=== PATIENT | male | born 1950 | race Hispanic/Latino ===

== ENCOUNTER 2024-11-07 14:32 | Inpatient (IN) | payer MEDICARE ==
[~2024-11-07] VITALS: Ht 167.6 cm; Wt 135.5 kg
[2024-11-07 15:10] LABS: BASOPHILS # (AUTO) 0.09 K/uL (0.00-0.20); BASOPHILS % (AUTO) 1.3 % (0.0-5.0); EOSINOPHILS # (AUTO) 0.47 K/uL (0.00-0.70); EOSINOPHILS % (AUTO) 6.6 % (0.0-8.0); HEMATOCRIT 35.7 % (42-54); IMMATURE GRANULOCYTE ABSOLUTE 0.01 K/uL (0-1); LYMPHOCYTES # (AUTO) 1.6 K/uL (1.0-4.8); LYMPHOCYTES % (AUTO) 22.9 % (21.0-51.0); MEAN CORPUSCULAR HEMOGLOBIN 31.8 pg (27.0-33.0); MEAN CORPUSCULAR HGB CONC 34.5 g/dL (32.0-36.0); MEAN CORPUSCULAR VOLUME 92.2 fL (79-99); MONOCYTES # (AUTO) 0.8 K/uL (0.1-1.0); MONOCYTES % (AUTO) 11.8 % (3.0-13.0); NEUTROPHILS # (AUTO) 4.1 K/uL (1.8-7.7); NEUTROPHILS % (AUTO) 57.3 % (40.0-77.0); PLATELET COUNT (AUTO) 131 K/uL (130-400); RED BLOOD CELL COUNT(AUTO) 3.87 MIL/uL (4.50-6.20); RED CELL DISTRIBUTION WIDTH 14.7 % (11.0-15.5); WHITE BLOOD COUNT (AUTO) 7.1 K/uL (4.8-10.8)
[2024-11-07 15:23] LABS: CREATININE 0.9 mg/dL (0.5-1.3); POTASSIUM 3.3 mmol/L (3.5-5.1)
[2024-11-07 15:26] LABS: SARS-CoV-2, RNA, NAAT NEGATIVE SARS CoV-2 (NEGATIVE)
[2024-11-07 15:34] LABS: INFLUENZA TYPE A Negative For Type A (NEGATIVE); INFLUENZA TYPE B Negative For Type B (NEGATIVE)
--- NOTE | 2024-11-07 15:34 | HMCIMG ---
CHEST 1VW REASON: Shortness of breath COMPARISON: None. FINDINGS: There is mild cardiomegaly. There is no pulmonary vascular congestion. There is elevation of the right hemidiaphragm. Mediastinum and bony thorax appear unremarkable. IMPRESSION: 1. Mild cardiomegaly. 2. No acute finding.
[2024-11-07 15:35] LABS: B-TYPE NATRIURETIC PEPTIDE 34 pg/mL (0-100)
[2024-11-07] MEDS ORDERED: FURO40TA5 PO (15:57)
[2024-11-07] MEDS ORDERED: MUPI15CR12 TP (15:57)
[2024-11-07] MEDS ORDERED: CLOP75TA32 PO (15:57)
[2024-11-07] MEDS ORDERED: ASPI-1443 PO (15:57)
[2024-11-07] MEDS ORDERED: LISI10TA24 PO (15:57)
[2024-11-07] MEDS ORDERED: AMLO-257 PO (15:57)
[2024-11-07] MEDS ORDERED: ATOR10 PO (15:57)
--- NOTE | 2024-11-07 16:03 | ERN ---
General Chief Complaint: Shortness of Breath Stated Complaint: SOB SENT BY PCP Time Seen by MD: 14:36 History of Present Illness Initial Comments 74 y/o male came in for shortness of breath without any chest pain. Home Meds Reported Medications Mupirocin Calcium (Mupirocin) 2 % Cream..g., 1 APPL TP TID for 10 Days, #30 GM 0 Refills 11/07/24 Lisinopril (Lisinopril) 10 Mg Tablet, 1 TAB PO DAILY for 30 Days, #30 TAB 0 Refills 11/07/24 Clopidogrel Bisulfate (Clopidogrel) 75 Mg Tablet, 1 TAB PO DAILY for 30 Days, #30 TAB 0 Refills 11/07/24 Atorvastatin Calcium (LIPITOR) 20 Mg Tab, 1 TAB PO HS for 30 Days, #30 TAB 0 Refills 11/07/24 Aspirin (Aspirin EC) 81 Mg Tablet.dr, 1 TAB PO DAILY for 30 Days, #30 TAB 0 Refills 11/07/24 Furosemide (Furosemide) 40 Mg Tablet, 1 TAB PO DAILY for 30 Days, #30 TAB 0 Refills 11/07/24 Amlodipine Besylate (Amlodipine Besylate) 5 Mg Tablet, 1 TAB PO DAILY for 30 Days, #30 TAB 0 Refills 11/07/24 Past Medical History Past Medical History: CHF, High Cholesterol, Hypertension Past Surgical History: None ROS Dictation Shortness of breath Physical Exam Physical Exam Dictation There are B/L crackles Results Laboratory and Microbiology Lab and Micro Result Laboratory Tests Test 11/07/24 14:56 11/07/24 15:00 Influenza Type A Antigen Negative For Type A Influenza Type B Antigen Negative For Type B SARS-CoV-2, RNA, NAAT NEGATIVE SARS CoV-2 White Blood Count 7.1 K/uL (4.8-10.8) Red Blood Count 3.87 MIL/uL (4.50-6.20) L Hemoglobin 12.3 g/dL (14.0-18.0) L Hematocrit 35.7 % (42-54) L Mean Corpuscular Volume 92.2 fL (79-99) Mean Corpuscular Hemoglobin 31.8 pg (27.0-33.0) Mean Corpuscular Hemoglobin Concent 34.5 g/dL (32.0-36.0) Red Cell Distribution Width 14.7 % (11.0-15.5) Platelet Count 131 K/uL (130-400) Mean Platelet Volume 9.5 fL (7.5-10.5) Immature Granulocyte % (Auto) 0.1 % (0-1) Neutrophils (%) (Auto) 57.3 % (40.0-77.0) Lymphocytes (%) (Auto) 22.9 % (21.0-51.0) Monocytes (%) (Auto) 11.8 % (3.0-13.0) Eosinophils (%) (Auto) 6.6 % (0.0-8.0) Basophils (%) (Auto) 1.3 % (0.0-5.0) Neutrophils # (Auto) 4.1 K/uL (1.8-7.7) Lymphocytes # (Auto) 1.6 K/uL (1.0-4.8) Monocytes # (Auto) 0.8 K/uL (0.1-1.0) Eosinophils # (Auto) 0.47 K/uL (0.00-0.70) Basophils # (Auto) 0.09 K/uL (0.00-0.20) Absolute Immature Granulocyte (auto 0.01 K/uL (0-1) Nucleated Red Blood Cells 0.0 % (0.0-0.19) Sodium Level 140 mmol/L (136-145) Potassium Level 3.3 mmol/L (3.5-5.1) L Chloride Level 106 mmol/L (101-111) Carbon Dioxide Level 27 mmol/L (21-32) Blood Urea Nitrogen 12 mg/dL (7-18) Creatinine 0.9 mg/dL (0.5-1.3) Glomerular Filtration Rate Calc 91 mL/min (>90) Random Glucose 105 mg/dL (70-105) Lactic Acid Level 1.9 mmol/L (0.8-2.5) Total Calcium 8.5 mg/dL (8.5-10.1) Troponin I High Sensitivity 10 ng/L (4-75) B-Type Natriuretic Peptide 34 pg/mL (0-100) MDM Pt admitted to hospitalist for further management ED Course Orders Procedure Category Date Status Time 12 Lead Ekg Tracing- EKG 11/07/24 Logged Technical 14:36 Cbc With Differential LAB 11/07/24 Complete 14:36 Basic Metabolic Panel LAB 11/07/24 Complete 14:36 Covid Rna Naat LAB 11/07/24 Complete 14:36 B-Type Natriuretic LAB 11/07/24 Complete Peptide 14:36 Influenza Type A & B, LAB 11/07/24 Complete Rapid 14:36 Lactic Acid LAB 11/07/24 Complete 14:36 Procalcitonin LAB 11/07/24 In Process 14:36 Pt And Ptt LAB 11/07/24 In Process 14:36 Troponin I High LAB 11/07/24 Complete Sensitivity 14:36 Chest 1vw RAD 11/07/24 Resulted 14:36 Furosemide 40mg Vial PHA 11/07/24 Transmitted (Lasix 40mg Vial) 16:00 Vital Signs Date Time Temp Pulse Resp B/P (MAP) Pulse Ox O2 Delivery O2 Flow Rate FiO2 11/07/24 15:02 57 18 153/58 98 Room Air* 0 21 11/07/24 14:34 97.3 81 20 149/72 Room Air 0 DX & DISP Disposition: Inpatient Departure Impression: Primary Impression: CHF exacerbation Condition: Stable XENIA WALDEN MD Nov 07, 2024 16:03
[2024-11-07 16:05] LABS: INR 1.29 (0.85-1.15); PROTHROMBIN TIME 14.1 SEC (9.6-11.6)
[2024-11-07 16:06] LABS: PARTIAL THROMBOPLASTIN TIME 33.3 SEC (26.3-35.5)
[2024-11-07] MEDS: furoSEMIDE 40MG VIAL IV ONE (16:11)
[2024-11-07] MEDS ORDERED: NITROGLYCERIN 0.4 MG SL TAB SL PRN (16:30)
[2024-11-07] MEDS ORDERED: acetaMINOPHEN 325 MG TAB PO PRN (16:30)
[2024-11-07] MEDS ORDERED: guaiFENesin-DM 200/20MG 10ML PO PRN (16:30)
[2024-11-07] MEDS ORDERED: DiphenhydrAMINE HCL 50 MG/ML VIAL IV PRN (16:30)
[2024-11-07] MEDS ORDERED: LACTULOSE 20 GM/30 ML UDCUP PO PRN (16:30)
[2024-11-07] MEDS ORDERED: ondanSETRON 4MG INJ IV PRN (16:30)
[2024-11-07] MEDS ORDERED: FAMOTIDINE 20MG VIAL IV PRN (16:30)
[2024-11-07] MEDS: furoSEMIDE 40MG VIAL IV SCH (16:30)
[2024-11-07] MEDS ORDERED: morPHINE 2 MG SYG IVP PRN (16:30)
[2024-11-07] MEDS ORDERED: ZOLPidem TARTrate 5 MG TAB PO PRN (16:30)
--- NOTE | 2024-11-07 16:36 | HP ---
LAY HISTORY AND PHYSICAL Date of Service: Nov 07, 2024 Time of Service: 16:36 HISTORY OF PRESENT ILLNESS: MR. Clifton, 74-year-old male with past history of blood pressure, came to the ED was referred by his PCP for shortness of breaths and sudden increase in his weight in 2 weeks of 30 lb probable fluid weight. Patient states he had COVID in August, after which his symptoms started of cough which was worsening and in September he started developing shortness of breath, worsening now he is in a state of gasping air and able to catch words properly. He says he sleeps with2 pillows, but has been the same way from before. Patient says he consulted Dr. Barroso on October 31 2024 and follows outpatient. On examination patient face looks puffy and lower extremities has chronic venous stasis dermatitis with edema, he says has been scratched in the garden on the right lower leg inform blisters which is not resolving. Ordered for a venous Doppler study. Chest x-ray shows cardiomegaly and pleural effusion. In the ED patient has been given furosemide 40 mg vial.Vitals temperature 97.3, pulse 57, RR 18 , blood pressure 153/58, pulse oxy 98 on room air. Labs WBC 7.1 HB 12.3, sodium 140, potassium 3.3, BUN 12 , creatinine 0.9, GFR 91. Troponin negative 10, BNP 34, we will repeat troponins and BNP. We will admit the patient to PCCU, with daily fluid restrictions of 1.5-2 L, daily weights, strict I&O. REVIEW OF SYSTEMS CONSTITUTIONAL: Shortness of breath, cough Denies fevers, chills, or night sweats. No unintentional weight loss reported. NEUROLOGICAL: Denies headache, amaurosis fugax, motor weakness, sensory deficit, vertigo/spinning sensation, gait abnormalities, or tremors. ENT: No hearing loss, otalgia, otorrhea, rhinitis, rhinorrhea, hoarseness, or sore throat. CARDIOVASCULAR: Denies any exertional angina, dyspnea on exertion, orthopnea, paroxysmal nocturnal dyspnea, palpitations, life-threatening arrhythmias, claudication. PULMONARY: Denies any shortness of breath, cough, phlegm/sputum, hemoptysis, pleuritic chest pain. SLEEP: Denies morning headaches, daytime somnolence or napping. Denies diff iculty falling asleep, staying asleep, waking from sleep. Denies knowledge of snoring. GASTROINTESTINAL: Denies any type of dysphagia to either liquids or solids. Denies nausea, vomiting, pyrosis, early satiety, abdominal pain, diarrhea, constipation, or changes in stool consistency or caliber. Denies coffee-ground emesis, hematemesis, hematochezia, or melanotic stools. GENITOURINARY: Denies frequency, urgency, nocturia, hematuria or incontinence (Storage/Irritative symptoms.) Low urinary stream, straining to void, urinary intermittency or hesitancy, splitting of the voiding stream, terminal dribbling. ENDOCRINOLOGIC: Denies polyuria, polydipsia, polyphagia or heat/cold in tolerances. HEMATOLOGIC: Denies thrombophilia/previous clots, or coagulopathy/bleeding disorders. ONCOLOGIC: Denies personal history of malignancy. DERMATOLOGIC: Chronic venous stasis dermatitis Denies rashes or pruritus. PSYCHIATRIC: Denies any suicidal or homicidal ideation. Denies hallucinations. PAST MEDICAL HISTORY: High Blood pressure PAST SURGICAL HISTORY: None PAST SOCIAL HISTORY: None FAMILY HISTORY: n/a Coded Allergies: No Known Drug Allergies (Unverified Allergy, Unknown, 11/07/24) PHYSICAL EXAM GENERAL APPEARANCE: edematous The patient is awake, alert, and oriented, in no acute cardiopulmonary distress. NEUROLOGICAL: Cranial nerves II-XII grossly intact. Motor is 5/5 in bilateral upper and lower extremities proximal to distal. No sensory deficits. HEENT: Face is symmetric. Pupils are equal and reactive. Extraocular movements are intact. NECK: Supple. No JVD. No thyromegaly. No submental, submandibular, pre- /postauricular, occipital or supraclavicular lymphadenopathy. CHEST: Normal chest expansion. No Telemetry. LUNGS: Decreased breath sounds Absence of any rales, rhonchi or any wheezing. CARDIOVASCULAR: Regular. S1 and S2 normal. No appreciable rubs, murmurs or gallops. ABDOMEN: Soft, nontender, and nondistended. There is no rebound, voluntary guarding, or rigidity. : Deferred. No [place]. EXTREMITIES: Chronic venous stasis dermatitis Non-edematous and not cyanotic. No clubbing. Good capillary refill. SKIN: No skin breakdown. Vital Sign (Last 24 Hours) 11/07/24 11/07/24 14:34 15:02 Temp 97.3 Pulse 57 Resp 18 B/P (MAP) 153/58 Pulse Ox 98 O2 Delivery Room Air* O2 Flow Rate 0 FiO2 21 LABS: Laboratory: Test 11/07/24 15:00 11/07/24 14:56 Range/Units White Blood Count 7.1 4.8-10.8 K/uL Red Blood Count 3.87 L 4.50-6.20 MIL/uL Hemoglobin 12.3 L 14.0-18.0 g/dL Hematocrit 35.7 L 42-54 % Mean Corpuscular Volume 92.2 79-99 fL Mean Corpuscular Hemoglobin 31.8 27.0-33.0 pg Mean Corpuscular Hemoglobin Concent 34.5 32.0-36.0 g/dL Red Cell Distribution Width 14.7 11.0-15.5 % Platelet Count 131 130-400 K/uL Mean Platelet Volume 9.5 7.5-10.5 fL Immature Granulocyte % (Auto) 0.1 0-1 % Neutrophils (%) (Auto) 57.3 40.0-77.0 % Lymphocytes (%) (Auto) 22.9 21.0-51.0 % Monocytes (%) (Auto) 11.8 3.0-13.0 % Eosinophils (%) (Auto) 6.6 0.0-8.0 % Basophils (%) (Auto) 1.3 0.0-5.0 % Neutrophils # (Auto) 4.1 1.8-7.7 K/uL Lymphocytes # (Auto) 1.6 1.0-4.8 K/uL Monocytes # (Auto) 0.8 0.1-1.0 K/uL Eosinophils # (Auto) 0.47 0.00-0.70 K/uL Basophils # (Auto) 0.09 0.00-0.20 K/uL Absolute Immature Granulocyte (auto 0.01 0-1 K/uL Nucleated Red Blood Cells 0.0 0.0-0.19 % Prothrombin Time 14.1 H 9.6-11.6 SEC Prothromb Time International Ratio 1.29 H 0.85-1.15 Activated Partial Thromboplast Time 33.3 26.3-35.5 SEC Sodium Level 140 136-145 mmol/L Potassium Level 3.3 L 3.5-5.1 mmol/L Chloride Level 106 101-111 mmol/L Carbon Dioxide Level 27 21-32 mmol/L Blood Urea Nitrogen 12 7-18 mg/dL Creatinine 0.9 0.5-1.3 mg/dL Glomerular Filtration Rate Calc 91 >90 mL/min Random Glucose 105 70-105 mg/dL Lactic Acid Level 1.9 0.8-2.5 mmol/L Total Calcium 8.5 8.5-10.1 mg/dL Troponin I High Sensitivity 10 4-75 ng/L B-Type Natriuretic Peptide 34 0-100 pg/mL Procalcitonin 0.06 0.05-0.5 ng/mL Influenza Type A Antigen Negative For Type A NEGATIVE Influenza Type B Antigen Negative For Type B NEGATIVE SARS-CoV-2, RNA, NAAT NEGATIVE SARS CoV-2 NEGATIVE DIAGNOSTICS / RADIOLOGY: [ ] ASSESSMENT: fluid overload anasarca cirrhosis vs nephrotic syndrome vs Heart failure Shortness of breaths Edema Hypokalemia Pleural effusion on chest x-ray Cardiomegaly on chest x-ray Chronic venous stasis dermatitis bilateral History of high blood pressure PLAN: We will plan to admit the patient to PCCU Daily fluid restriction 1.5-2 L, daily weights, strict I&O We will start the patient on furosemide 40 mg b.i.d. IV Started On heart healthy diet Chest x-ray noted, echo noted pending on results Venous Doppler study noted pending on results, as the patient has chronic venous stasis dermatitis Cardiology consultation noted, waiting on their recommendations Reconciled home meds Added p.r.n. medications for nausea vomiting cough, hypokalemia, hypomagnesemia Started on DVT/GI prophylaxis Further orders to follow as per the recommendation and results ADVANCED CARE PLANNING 1. Which of the following were discussed? Hospice Care - Yes Therapeutic options - Yes Advance Directives - Yes- patient states he does not have any advance directives in place at this time, however his can make decisions for him if he becomes unable. Other discussions - patient wishes to remain a full code at this time 2. Discussed with who? Patient 3. Voluntary nature of this service was explained to the patient? Yes 4. Amount of time spent - __ 16 minutes 5. Reviewed by Physician? (if this service was performed by NPP) Yes This document was generated in part using voice recognition software, occasional wrong word or sound alike substitutions may have occurred due to the inherent limitations of voice recognition software. Read the chart carefully and recognize using context, where the substitutions have occurred. Although every effort was made to edit the content, job hand and typing errors may occur ATTESTATION BY PHYSICIAN I have seen and examined the patient. I reviewed the documentation, medical decision making, and treatment plan as noted by the mid-level provider above. I agree with the findings and plan of care. Marycarmen Rodrigues MD, AISHWARYA MD Nov 07, 2024 16:36
[2024-11-07] MEDS ORDERED: PoTASSium chloRIDE 20MEQ/100ML 100 ML IV PRN (17:00)
[2024-11-07] MEDS ORDERED: MAGNESIUM 2GM PREMIX 50ML 50 ML IV PRN (17:00)
[2024-11-07] MEDS: PoTASSium chl 10% ELIXIR 20MEQ 20 MEQ/15 ML UDCUP PO PRN (17:09)
[2024-11-07 17:20] VITALS: PULSE 82; RESP 20; O2SAT 99
--- NOTE | 2024-11-07 18:05 | HMCIMG ---
ULTRASOUND VENOUS DOPPLER, BILATERAL LOWER EXTREMITIES INDICATION: Bilateral lower extremity pain and swelling TECHNIQUE: Routine grayscale and color Doppler ultrasound of the bilateral lower extremity veins performed. COMPARISON: No priors. FINDINGS: The demonstrated veins of the bilateral lower extremity including the common femoral vein, femoral vein, and popliteal vein are associated with normal compressibility, augmentation, and flow. Normal respiratory variation was identified. No evidence for echogenic intraluminal thrombus formation. IMPRESSION: No sonographic evidence for deep venous thrombosis within the bilateral lower extremity veins.
[2024-11-07] MEDS ORDERED: IOHEXOL 350 MG/ML 100ML INFUS..BTL IV ONE (18:30)
--- NOTE | 2024-11-07 18:51 | HMCIMG ---
CT ANGIOGRAM OF THE CHEST WITHOUT AND WITH CONTRAST. CT RECONSTRUCTIONS INDICATION: Elevated d-dimer TECHNIQUE: Routine axial images using 3 mm slice thickness were acquired from the lung apices to the bases before and after the intravenous administration of 100 mL of Omnipaque 350 contrast material using the pulmonary embolism protocol. Maximum Intensity Projection imaging in the sagittal and coronal planes were also provided. CT was performed with one or more of the following dose reduction techniques: Automated exposure control, adjustment of the mA and/or kV according to patient size, or use of iterative reconstruction technique. COMPARISON: None FINDINGS: Examination is limited secondary to suboptimal contrast bolus timing. The contrast bolus is of fair-poor quality for diagnosis of pulmonary embolism. The heart size is within normal limits without pericardial effusion. The main pulmonary arteries and visible proximal segmental branches appear normal without intraluminal filling defects. Remainder of the pulmonary arterial system is not well-visualized. Pulmonary trunk is not enlarged. Mild calcific plaque is present along the aortic arch and thoracic aortic dillon without aneurysmal dilation or dissection. The visible portions of the trachea and airways are patent. Moderate right pleural effusion with subjacent passive atelectasis, but no evidence for pneumothorax, abnormal consolidation, cavitary lesion, pulmonary nodule, or mass. No axillary, hilar, or mediastinal lymphadenopathy detected. Several subcentimeter calcific gallstones. Liver is decreased in size and nodular in contour. Small amount of free fluid scattered throughout the upper abdomen. Spleen may be slightly enlarged. Visible osseous structures are intact. IMPRESSION: 1. Moderate right pleural effusion with subjacent passive atelectasis, but no evidence for pulmonary embolism within the limits of this exam. 2. Cirrhotic liver, mild splenic enlargement, and small-volume upper abdominal ascites. 3. Cholelithiasis.
[2024-11-07 19:03] VITALS: PULSE 82; RESP 20
[2024-11-07] MEDS: ALBUTEROL 0.083% 2.5 MG/3 ML INH IH SCH (19:03)
[2024-11-07 19:10] VITALS: PULSE 86; RESP 20; O2SAT 98
[2024-11-07] MEDS: atorVAStatin 10 MG TABLET PO SCH (20:07)
[2024-11-07] MEDS: HEParin 5,000 UNIT VIAL SQ SCH (20:07)
[2024-11-07 21:45] VITALS: BP 127/52; PULSE 76; RESP 18; TEMP 98
[2024-11-07 23:41] VITALS: PULSE 78; RESP 18; RESP 20; O2SAT 96
[2024-11-08] VITALS (10 sets, daily range): BP systolic 110–159; BP diastolic 45–65; PULSE 74–89; RESP 18–20; TEMP 97.8–98.5; O2SAT 97–99
--- NOTE | 2024-11-08 05:00 | EKG ---
[facility] Test Date: 2024-11-07 Test Time: 14:40:08 Pat Name: DAKSHA MENDOZA Department: [facility] Patient ID: [facility] [id number] Room: 421 1 Gender: M Resource Agent: [id number] : 1950 Requested By: XENIA WALDEN Order Number: [id number] Reading MD: Marin Moore Measurements Intervals [place] Rate: 81 P: 53 NV: 187 QRS: -40 QRSD: 120 T: 123 QT: 425 QTc: 493 Interpretive Statements Sinus rhythm Nonspecific IVCD with LAD Consider anterior infarct Abnormal T, consider ischemia, lateral leads No previous ECG available for comparison Electronically Signed On 11-08-2024 18:39:02 INTERPRETIVE NATURALIST by Marin Moore Please click the below link to view image of tracing.
[2024-11-08 05:20] LABS: BASOPHILS # (AUTO) 0.06 K/uL (0.00-0.20); BASOPHILS % (AUTO) 1.1 % (0.0-5.0); EOSINOPHILS # (AUTO) 0.33 K/uL (0.00-0.70); EOSINOPHILS % (AUTO) 5.9 % (0.0-8.0); HEMATOCRIT 30.9 % (42-54); IMMATURE GRANULOCYTE ABSOLUTE 0.02 K/uL (0-1); LYMPHOCYTES # (AUTO) 1.6 K/uL (1.0-4.8); LYMPHOCYTES % (AUTO) 28.5 % (21.0-51.0); MEAN CORPUSCULAR HGB CONC 35.3 g/dL (32.0-36.0); MEAN CORPUSCULAR VOLUME 90.6 fL (79-99); MONOCYTES # (AUTO) 0.6 K/uL (0.1-1.0); MONOCYTES % (AUTO) 10.5 % (3.0-13.0); NEUTROPHILS % (AUTO) 53.6 % (40.0-77.0); PLATELET COUNT (AUTO) 125 K/uL (130-400); RED BLOOD CELL COUNT(AUTO) 3.41 MIL/uL (4.50-6.20); RED CELL DISTRIBUTION WIDTH 14.9 % (11.0-15.5); WHITE BLOOD COUNT (AUTO) 5.6 K/uL (4.8-10.8)
[2024-11-08 05:39] LABS: ALBUMIN 2.2 g/dL (3.5-5.0); BILIRUBIN,TOTAL 2.3 mg/dL (0.2-1.0); CREATININE 0.9 mg/dL (0.5-1.3); POTASSIUM 4.1 mmol/L (3.5-5.1); TOTAL PROTEIN, SERUM 6.1 g/dL (6.0-8.3)
[2024-11-08 05:53] LABS: B-TYPE NATRIURETIC PEPTIDE 23 pg/mL (0-100)
[2024-11-08] MEDS ORDERED: BENZ200C53 PO (07:50)
[2024-11-08] MEDS ORDERED: METO25 PO (07:50)
[2024-11-08] MEDS ORDERED: CEPH500C2 PO (07:50)
[2024-11-08] MEDS ORDERED: ATOR20TA65 PO (07:50)
[2024-11-08] MEDS: DiphenhydrAMINE HCL 50 MG/ML VIAL ONE (08:28)
[2024-11-08] MEDS: LISINOPRIL 10 MG TABLET PO SCH (09:50)
[2024-11-08] MEDS: ASPIRIN 81 MG EC TAB PO SCH (09:51)
[2024-11-08] MEDS: cloPIDOgrel 75MG TAB PO SCH (09:51)
[2024-11-08] MEDS: amLODIPine 5 MG TAB PO SCH (09:52)
--- NOTE | 2024-11-08 17:57 | NUR ---
cm note met with pt and spouse . states lives with spouse, independent with adls/ambulation , no dme. no home services. pt drives. dc plan is home at [place]. assists as needed. dc plan home stes no dc needs.. Addendum: 11/08/24 at 1806 by WILLOW RICKETTS CM Amended: Links added.
--- NOTE | 2024-11-08 19:24 | PN ---
[facility] PROGRESS NOTE Date of Service: Nov 08, 2024 Time of Service: 19:24 SUBJECTIVE: [ ] 11/08-patient was seen at the bedside with his present, hemodynamically stable. Pulmonology consult noted for right pleural effusion, no indication for thoracocentesis. Continue the patient on diuretics. Patient's weight on admission 320, today's weight 313. We will continue monitor for today. CT chest Was done for elevated D-dimers Moderate right pleural effusion with subjacent passive atelectasis,but no evidence for pulmonary embolism within the limits of this exam. Cirrhotic liver, mild splenic enlargement, and small-volume upper abdominal ascites. Cholelithiasis. Echo EF 60-65%. REVIEW OF SYSTEMS CONSTITUTIONAL: Shortness of breath, cough Denies fevers, chills, or night sweats. No unintentional weight loss reported. NEUROLOGICAL: Denies headache, amaurosis fugax, motor weakness, sensory deficit, vertigo/spinning sensation, gait abnormalities, or tremors. ENT: No hearing loss, otalgia, otorrhea, rhinitis, rhinorrhea, hoarseness, or sore throat. CARDIOVASCULAR: Denies any exertional angina, dyspnea on exertion, orthopnea, paroxysmal nocturnal dyspnea, palpitations, life-threatening arrhythmias, claudication. PULMONARY: Denies any shortness of breath, cough, phlegm/sputum, hemoptysis, pleuritic chest pain. SLEEP: Denies morning headaches, daytime somnolence or napping. Denies difficulty falling asleep, staying asleep, waking from sleep. Denies knowledge of snoring. GASTROINTESTINAL: Denies any type of dysphagia to either liquids or solids. Denies nausea, vomiting, pyrosis, early satiety, abdominal pain, diarrhea, constipation, or changes in stool consistency or caliber. Denies coffee-ground emesis, hematemesis, hematochezia, or melanotic stools. GENITOURINARY: Denies frequency, urgency, nocturia, hematuria or incontinence (Storage/Irritative symptoms.) Low urinary stream, straining to void, urinary intermittency or hesitancy, splitting of the voiding stream, terminal dribbling. ENDOCRINOLOGIC: Denies polyuria, polydipsia, polyphagia or heat/cold intolerances. HEMATOLOGIC: Denies thrombophilia/previous clots, or coagulopathy/bleeding disorders. ONCOLOGIC: Denies personal history of malignancy. DERMATOLOGIC: Chronic venous stasis dermatitis Denies rashes or pruritus. PSYCHIATRIC: Denies any suicidal or homicidal ideation. Denies hallucinations. PHYSICAL EXAM GENERAL APPEARANCE: edematous The patient is awake, alert, and oriented, in no acute cardiopulmonary distress. NEUROLOGICAL: Cranial nerves II-XII grossly intact. Motor is 5/5 in bilateral upper and lower extremities proximal to distal. No sensory deficits. HEENT: Face is symmetric. Pupils are equal and reactive. Extraocular movements are intact. NECK: Supple. No JVD. No thyromegaly. No submental, submandibular, pre- /postauricular, occipital or supraclavicular lymphadenopathy. CHEST: Normal chest expansion. No Telemetry. LUNGS: Decreased breath sounds Absence of any rales, rhonchi or any wheezing. CARDIOVASCULAR: Regular. S1 and S2 normal. No appreciable rubs, murmurs or gallops. ABDOMEN: Soft, nontender, and nondistended. There is no rebound, voluntary guarding, or rigidity. : Deferred. No [place]. EXTREMITIES: Chronic venous stasis dermatitis Non-edematous and not cyanotic. No clubbing. Good capillary refill. SKIN: No skin breakdown. Vital Signs (last 8hr) Date Time Temp Pulse Resp B/P (MAP) Pulse Ox O2 Delivery O2 Flow Rate FiO2 11/08/24 19:03 85 18 N/A Room Air 21 11/08/24 19:03 85 20 11/08/24 16:00 98.2 83 20 159/65 97 Room Air 21 11/08/24 12:00 97.9 75 20 146/63 97 Room Air 21 11/08/24 11:31 79 20 11/08/24 11:31 79 18 N/A Room Air 21 LABS: Laboratory: Test 11/08/24 04:39 11/07/24 15:00 11/07/24 14:56 Range/Units White Blood Count 5.6 4.8-10.8 K/uL Red Blood Count 3.41 L 4.50-6.20 MIL/uL Hemoglobin 10.9 L 14.0-18.0 g/dL Hematocrit 30.9 L 42-54 % Mean Corpuscular Volume 90.6 79-99 fL Mean Corpuscular Hemoglobin 32.0 27.0-33.0 pg Mean Corpuscular Hemoglobin Concent 35.3 32.0-36.0 g/dL Red Cell Distribution Width 14.9 11.0-15.5 % Platelet Count 125 L 130-400 K/uL Mean Platelet Volume 9.7 7.5-10.5 fL Immature Granulocyte % (Auto) 0.4 0-1 % Neutrophils (%) (Auto) 53.6 40.0-77.0 % Lymphocytes (%) (Auto) 28.5 21.0-51.0 % Monocytes (%) (Auto) 10.5 3.0-13.0 % Eosinophils (%) (Auto) 5.9 0.0-8.0 % Basophils (%) (Auto) 1.1 0.0-5.0 % Neutrophils # (Auto) 3.0 1.8-7.7 K/uL Lymphocytes # (Auto) 1.6 1.0-4.8 K/uL Monocytes # (Auto) 0.6 0.1-1.0 K/uL Eosinophils # (Auto) 0.33 0.00-0.70 K/uL Basophils # (Auto) 0.06 0.00-0.20 K/uL Absolute Immature Granulocyte (auto 0.02 0-1 K/uL Nucleated Red Blood Cells 0.0 0.0-0.19 % Sodium Level 142 136-145 mmol/L Potassium Level 4.1 3.5-5.1 mmol/L Chloride Level 108 101-111 mmol/L Carbon Dioxide Level 28 21-32 mmol/L Blood Urea Nitrogen 12 7-18 mg/dL Creatinine 0.9 0.5-1.3 mg/dL Glomerular Filtration Rate Calc 91 >90 mL/min Random Glucose 82 70-105 mg/dL Total Calcium 8.1 L 8.5-10.1 mg/dL Total Bilirubin 2.3 H 0.2-1.0 mg/dL Aspartate Amino Transf (AST/SGOT) 52 H 10-37 U/L Alanine Aminotransferase (ALT/SGPT) 25 12-78 U/L Alkaline Phosphatase 208 H 50-136 U/L B-Type Natriuretic Peptide 23 0-100 pg/mL Total Protein 6.1 6.0-8.3 g/dL Albumin 2.2 L 3.5-5.0 g/dL Prothrombin Time 14.1 H 9.6-11.6 SEC Prothromb Time International Ratio 1.29 H 0.85-1.15 Activated Partial Thromboplast Time 33.3 26.3-35.5 SEC D-Dimer Quantitative (PE/DVT) 4755 *H 0-500 ng/mL Lactic Acid Level 1.9 0.8-2.5 mmol/L Troponin I High Sensitivity 10 4-75 ng/L Procalcitonin 0.06 0.05-0.5 ng/mL Influenza Type A Antigen Negative For Type A NEGATIVE Influenza Type B Antigen Negative For Type B NEGATIVE SARS-CoV-2, RNA, NAAT NEGATIVE SARS CoV-2 NEGATIVE Current Medications Medications (Trade) Dose Ordered Sig/Shivam Route PRN Reason Start Time Stop Time Status Last Admin Dose Admin Acetaminophen (TYLenol 325MG TAB) 650 mg Q6H PRN PO MILD PAIN (1-3) 11/07/24 16:30 12/07/24 16:29 Albuterol Sulfate (Proventil 0.083% 2.5mg/3ml) 2.5 mg S3PDYPT IH 11/07/24 18:00 12/07/24 17:59 11/08/24 19:01 2.5 MG Amlodipine Besylate (NorvASC 5MG TAB) 5 mg DAILY PO 11/08/24 09:00 12/08/24 08:59 11/08/24 09:52 5 MG Aspirin (Aspirin 81mg Ec Tab) 81 mg DAILY PO 11/08/24 09:00 12/08/24 08:59 11/08/24 09:51 81 MG Atorvastatin Calcium (LIPItor 10MG) 10 mg HS PO 11/07/24 21:00 12/07/24 20:59 11/07/24 20:07 10 MG Clopidogrel Bisulfate (plaVIX 75MG) 75 mg DAILY PO 11/08/24 09:00 12/08/24 08:59 11/08/24 09:51 75 MG Diphenhydramine HCl (BENAdryl INJ) 25 mg Q6H PRN IV SEVERE ITCHING/RASH 11/07/24 16:30 12/07/24 16:29 Famotidine (Pepcid 20mg Vial) 20 mg BID PRN IV NAUSEA/VOMITING 11/07/24 16:30 12/07/24 16:29 Furosemide (LASix 40MG VIAL) 40 mg Q12H IV 11/07/24 16:30 12/07/24 16:29 11/08/24 17:26 40 MG Guaifenesin/ Dextromethorphan (RobiTUSSin DM 200/20MG 10ML) 10 ml Q4H PRN PO COUGH 11/07/24 16:30 12/07/24 16:29 Heparin Sodium (Porcine) (HEParin 5,000 UNIT VIAL) 5,000 unit TID SQ 11/07/24 21:00 12/07/24 20:59 11/08/24 17:28 5,000 UNIT Lactulose (Constulose 20gm/ 30ml Udcup) 20 gm BID PRN PO CONSTIPATION 11/07/24 16:30 12/07/24 16:29 Lisinopril (Prinivil 10mg) 10 mg DAILY PO 11/08/24 09:00 12/08/24 08:59 11/08/24 09:50 10 MG Magnesium Sulfate 50 ml @ 0 mls/hr PROTOCOL PRN IV PROTOCOL 11/07/24 17:00 12/07/24 16:59 Morphine Sulfate (morPHINE 2MG SYG) 2 mg Q4H PRN IVP SEVERE PAIN (7-10) 11/07/24 16:30 11/14/24 16:29 Nitroglycerin (Nitrostat) 0.4 mg PROTOCOL PRN SL CHEST PAIN 11/07/24 16:30 12/07/24 16:29 Ondansetron HCl (zoFRAN 4MG INJ) 4 mg Q6H PRN IV NAUSEA/VOMITING 11/07/24 16:30 12/07/24 16:29 Potassium Chloride 100 ml @ 100 mls/hr AD PRN IV POTASSIUM PROTOCOL 11/07/24 17:00 12/07/24 16:59 Potassium Chloride (K-Dur/Klor-Con 20meq) 20 meq AD PRN PO POTASSIUM PROTOCOL 11/07/24 17:00 12/07/24 16:59 Potassium Chloride (KCl 10% Elixir 20meq/15ml) 20 meq AD PRN PO POTASSIUM PROTOCOL 11/07/24 17:00 12/07/24 16:59 11/07/24 21:33 20 MEQ Zolpidem Tartrate (AmbIEN) 5 mg HS PRN PO INSOMNIA 11/07/24 16:30 12/07/24 16:29 DIAGNOSTICS / RADIOLOGY: [ ] ASSESSMENT: Acute CHF exacerbation with possible stable ejection fraction 60-65% Cirrhosis Shortness of breaths Edema Hypokalemia Pleural effusion on chest x-ray Cardiomegaly on chest x-ray Chronic venous stasis dermatitis bilateral History of high blood pressure PLAN: We will plan to admit the patient to [facility] Daily fluid restriction 1.5-2 L, daily weights, strict I&O We will start the patient on furosemide 40 mg b.i.d. IV Started On heart healthy diet Chest x-ray noted, echo noted pending on results Venous Doppler study noted pending on results, as the patient has chronic venous stasis dermatitis Cardiology consultation noted, waiting on their recommendations Reconciled home meds Added p.r.n. medications for nausea vomiting cough, hypokalemia, hypomagnesemia Started on DVT/GI prophylaxis Further orders to follow as per the recommendation and results ATTESTATION BY PHYSICIAN I have seen and examined the patient. I reviewed the documentation, medical decision making, and treatment plan as noted by the mid-level provider above. I agree with the findings and plan of care. Marycarmen Rodrigues MD, AISHWARYA MD Nov 08, 2024 19:24
[2024-11-09] VITALS (9 sets, daily range): BP systolic 120–138; BP diastolic 30–55; PULSE 18–79; RESP 17–20; TEMP 97.6–98; O2SAT 98–99
[2024-11-09 05:46] LABS: BASOPHILS # (AUTO) 0.07 K/uL (0.00-0.20); BASOPHILS % (AUTO) 1.2 % (0.0-5.0); EOSINOPHILS # (AUTO) 0.39 K/uL (0.00-0.70); EOSINOPHILS % (AUTO) 6.8 % (0.0-8.0); HEMATOCRIT 32.8 % (42-54); IMMATURE GRANULOCYTE ABSOLUTE 0.01 K/uL (0-1); LYMPHOCYTES # (AUTO) 1.9 K/uL (1.0-4.8); LYMPHOCYTES % (AUTO) 33.6 % (21.0-51.0); MEAN CORPUSCULAR HEMOGLOBIN 31.2 pg (27.0-33.0); MEAN CORPUSCULAR HGB CONC 33.2 g/dL (32.0-36.0); MONOCYTES # (AUTO) 0.5 K/uL (0.1-1.0); MONOCYTES % (AUTO) 9.2 % (3.0-13.0); NEUTROPHILS # (AUTO) 2.8 K/uL (1.8-7.7); PLATELET COUNT (AUTO) 115 K/uL (130-400); RED BLOOD CELL COUNT(AUTO) 3.49 MIL/uL (4.50-6.20); RED CELL DISTRIBUTION WIDTH 14.9 % (11.0-15.5); WHITE BLOOD COUNT (AUTO) 5.8 K/uL (4.8-10.8)
[2024-11-09 06:02] LABS: ALBUMIN 2.3 g/dL (3.5-5.0); BILIRUBIN,TOTAL 2.4 mg/dL (0.2-1.0); POTASSIUM 3.7 mmol/L (3.5-5.1); TOTAL PROTEIN, SERUM 6.2 g/dL (6.0-8.3)
[2024-11-09] MEDS: PoTASSium chloRIDE 20MEQ ER 20 MEQ ERTAB PO PRN (09:09)
--- NOTE | 2024-11-09 11:54 | HMCSR ---
APPROVED REPORT EXAM: Two-dimensional and M-mode echocardiogram with Doppler and color Doppler. Study Details: Hx: HTN, morbidly obese INDICATION ICD: Acute congestive heart failure 2D Dimensions RVDd4.7 cmLVEF(%)66.9 (>50%)LVED Vol(simp.)102.0 mL IVSd0.9 (0.7-1.1cm)FS(%)37 %LVES Vol(simp.)34.5 mL LVDd4.6 (3.8-5.6cm)LA (2D)5.2 (1.6-4.0cm)LVEF(%, simp.)66 % PWd1.3 (0.7-1.1cm)Ao Root(2D)2.9 (2.0-3.7cm)LA ESV INDEX (4CH)32.90 mL/m2 IVSs1.3 cmLVOT diam2.1 (1.8-2.4cm)LA ESV INDEX (2CH)28.80 mL/m2 LVDs2.9 (2.5-4.0cm)LA ESV INDEX (BP)29.40 mL/m2 PWs1.6 cm M-Mode Dimensions EPSS0.7 cm LA (MM)5.1 (1.6-4.0cm) Ao Root(MM)3.2 (2.0-3.7cm) Aortic Valve AoV VTI0.3 mAo Mean GR5.0 mmHgLVOT VTI0.23 m TRUPTI (VMAX)2.6 cm2AVA (VTI) 2.6 cm2 Mitral Valve MV E Vmax74.7 cm/sDECEL Sudc080 ms MV A Kinx474.6 cm/sP 1/2 T57 ms E/A ratio0.7MVA (PHT)3.9 cm2 TDI E/E' Poplln18.0E/E' Vnsmtvr50.2 Medial E' Peak V7.50 cm/sLateral E' Peak V7.30 cm/s Pulmonary Valve PV Vmax1.4 m/s PV Peak GR8.3 mmHg Tricuspid Valve TR Vmax1.7 m/s TR Peak GR11.5 mmHg Left Ventricle Left ventricular cavity size is normal. There is normal LV segmental wall motion. There is normal lef t ventricular wall thickness. LVEF is 60-65%. Stage I diastolic dysfunction. Right Ventricle The right ventricle is normal size. The right ventricular systolic function is normal. Atria The left atrium size is mildly dilated The right atrium size is normal. Aortic Valve The aortic valve is trileaflet normal in structure. No aortic regurgitation is present. There is no a ortic valvular stenosis. Mitral Valve The mitral valve is normal in structure. There is no mitral valve regurgitation noted. There is no mi tral valve stenosis. Tricuspid Valve The tricuspid valve is normal in structure. There is no tricuspid valve regurgitation noted. Pulmonic Valve The pulmonary valve is normal in structure. There is no pulmonic valvular regurgitation. Great Vessels The aortic root is normal in size. The IVC is normal in size and collapses >50% with inspiration. Pericardium There is trace of pericardial effusion. Other Information Quality : Technically difficult study due to body habitus. Conclusion Normal LV EF NO significant valve abnormalities
--- NOTE | 2024-11-09 13:57 | DS ---
Discharge Summary Hospital Course Summary: MR. Clifton, 74-year-old male with past history of blood pressure, came to the ED was referred by his PCP for shortness of breaths and sudden increase in his weight in 2 weeks of 30 lb probable fluid weight. Patient states he had COVID in August, after which his symptoms started of cough which was worsening and in September he started developing shortness of breath, worsening now he is in a state of gasping air and able to catch words properly. He says he sleeps with2 pillows, but has been the same way from before. Patient says he consulted Dr. Barroso on October 31 2024 and follows outpatient. On examination patient face looks puffy and lower extremities has chronic venous stasis dermatitis with edema, he says has been scratched in the garden on the right lower leg inform blisters which is not resolving. Ordered for a venous Doppler study normal. Chest x-ray shows cardiomegaly and pleural effusion. In the ED patient has been given furosemide 40 mg vial.Vitals temperature 97.3, pulse 57, RR 18 , blood pressure 153/58, pulse oxy 98 on room air. Labs WBC 7.1 HB 12.3, sodium 140, potassium 3.3, BUN 12 , creatinine 0.9, GFR 91. Troponin negative 10, BNP 34, we will repeat troponins and BNP. We will admit the patient to [facility] with tele, with daily fluid restrictions of 1.5-2 L, daily weights, strict I&O. 11/08-patient was seen at the bedside with his present, hemodynamically stable. Pulmonology consult noted for right pleural effusion, no indication for thoracocentesis. Continue the patient on diuretics. Patient's weight on admission 320, today's weight 313. We will continue monitor for today. CT chest Was done for elevated D-dimers Moderate right pleural effusion with subj acent passive atelectasis,but no evidence for pulmonary embolism within the limits of this exam. Cirrhotic liver, mild splenic enlargement, and small-volume upper abdominal ascites. Cholelithiasis. Echo EF 60-65%. 11/09-patient is hemodynamically stable for discharge, eating well able to move around. Spoke with patient's PCP Dr. Vallejo, regarding the patient's condition. He has a scheduled follow for the patient after discharge and notified him of patient's elevated liver enzymes. He has said he will refer the patient for the GI, also said the patient already follows GI outpatient cirrhosis. Patient's weight today 300lbs. Procedure(s): PATIENT: DAKSHA MENDOZA MR#: [id number] : 1950 SEX: M AGE: 74 LOCATION: [facility] ROOM/BED: [facility] ORDER 36 REPORT#: [id number] REASON: ORDERING PHYSICIAN: XENIA WALDEN MD PROCEDURE: EKG - 12 LEAD EKG TRACING- TECHNICAL [facility] Test Date: 2024-11-07 Test Time: 14:40:08 Pat Name: DAKSHA MENDOZA Department: [facility] Room: [facility] Gender: M Business Support Coordinator: [id number] : 1950 Requested By: XENIA WALDEN Order Number: [id number] Reading MD: Marin Moore Measurements Intervals [place] Rate: 81 P: 53 PA: 187 QRS: -40 QRSD: 120 T: 123 QT: 425 QTc: 493 Interpretive Statements Sinus rhythm Nonspecific IVCD with LAD Consider anterior infarct Abnormal T, consider ischemia, lateral leads No previous ECG available for comparison Electronically Signed On 11-08-2024 18:39:02 DIRECTOR OF REHABILITATIVE SERVICES by Marin Moore Please click the below link to view image of tracing. PATIENT: DAKSHA MENDOZA MR#: [id number] : 1950 SEX: M AGE: 74 LOCATION: [facility] ORDER 36 STATUS: REG ER REPORT#: [id number] SERVICE 143 REASON: Shortness of breath ORDERING PHYSICIAN: XENIA WALDEN MD PROCEDURE: CXR1VW - CHEST 1VW CHEST 1VW REASON: Shortness of breath COMPARISON: None. FINDINGS: There is mild cardiomegaly. There is no pulmonary vascular congestion. There is elevation of the right hemidiaphragm. Mediastinum and bony thorax appear unremarkable. IMPRESSION: 1. Mild cardiomegaly. 2. No acute finding. DICTATED BY: GEM WAHL MD DATE: 11/07/24 1531 ELECTRONICALLY SIGNED BY: GEM WAHL MD DATE: 11/07/24 1611 PATIENT: DAKSHA MENDOZA MR#: [id number] : 1950 SEX: M AGE: 74 LOCATION: [facility] ORDER 1637 STATUS: ADM IN REPORT#: [id number] SERVICE 1636 REASON: CHRONIC VENOUS STATSIS ORDERING PHYSICIAN: ESAU LIN MD PROCEDURE: VENOUS SKYE - US VENOUS DOPPLER BILATERAL ULTRASOUND VENOUS DOPPLER, BILATERAL LOWER EXTREMITIES INDICATION: Bilateral lower extremity pain and swelling TECHNIQUE: Routine grayscale and color Doppler ultrasound of the bilateral lower extremity veins performed. COMPARISON: No priors. FINDINGS: The demonstrated veins of the bilateral lower extremity including the common femoral vein, femoral vein, and popliteal vein are associated with normal compressibility, augmentation, and flow. Normal respiratory variation was identified. No evidence for echogenic intraluminal thrombus formation. IMPRESSION: No sonographic evidence for deep venous thrombosis within the bilateral lower extremity veins. DICTATED BY: VIOLETTE PALACIOS MD DATE: 11/07/241758 ELECTRONICALLY SIGNED BY: VIOLETTE PALACIOS MD DATE: 11/07/241804 PATIENT: DAKSHA MENDOZA MR#: [id number] : 1950 SEX: M AGE: 74 LOCATION: [facility] ORDER 26 STATUS: ADM IN REPORT#: [id number] SERVICE 26 REASON: ELEVATED D DIMER ORDERING PHYSICIAN: DARCY HALL PROCEDURE: CHES PE - CT CHEST PE PROTOCOL WWO CONT CT ANGIOGRAM OF THE CHEST WITHOUT AND WITH CONTRAST. CT RECONSTRUCTIONS INDICATION: Elevated d-dimer TECHNIQUE: Routine axial images using 3 mm slice thickness were acquired from the lung apices to the bases before and after the intravenous administration of 100 mL of Omnipaque 350 contrast material using the pulmonary embolism protocol. Maximum Intensity Projection imaging in the sagittal and coronal planes were also provided. CT was performed with one or more of the following dose reduction techniques: Automated exposure control, adjustment of the mA and/or kV according to patient size, or use of iterative reconstruction technique. COMPARISON: None FINDINGS: Examination is limited secondary to suboptimal contrast bolus timing. The contrast bolus is of fair-poor quality for diagnosis of pulmonary embolism. The heart size is within normal limits without pericardial effusion. The main pulmonary arteries and visible proximal segmental branches appear normal without intraluminal filling defects. Remainder of the pulmonary arterial system is not well-visualized. Pulmonary trunk is not enlarged. Mild calcific plaque is present along the aortic arch and thoracic aortic dillon without aneurysmal dilation or dissection. The visible portions of the trachea and airways are patent. Moderate right pleural effusion with subjacent passive atelectasis, but no evidence for pneumothorax, abnormal consolidation, cavitary lesion, pulmonary nodule, or mass. No axillary, hilar, or mediastinal lymphadenopathy detected. Several subcentimeter calcific gallstones. Liver is decreased in size and nodular in contour. Small amount of free fluid scattered throughout the upper abdomen. Spleen may be slightly enlarged. Visible osseous structures are intact. IMPRESSION: 1. Moderate right pleural effusion with subjacent passive atelectasis, but no evidence for pulmonary embolism within the limits of this exam. 2. Cirrhotic liver, mild splenic enlargement, and small-volume upper abdominal ascites. 3. Cholelithiasis. DICTATED BY: VIOLETTE PALACIOS MD DATE: 11/07/241845 ELECTRONICALLY SIGNED BY: VIOLETTE PALACIOS MD DATE: 11/07/24 185 PATIENT: DAKSHA MENDOZA MR#: [id number] : 1950 SEX: M AGE: 74 LOCATION: [facility] ORDER 1635 STATUS: ADM IN REPORT#: [id number] SERVICE 1634 REASON: ACUTE CHF ORDERING PHYSICIAN: ESAU LIN MD PROCEDURE: ECHO [facility] - ECHO 2-D COMPLETE APPROVED REPORT EXAM: Two-dimensional and M-mode echocardiogram with Doppler and color Doppler. Study Details: Hx: HTN, morbidly obese INDICATION ICD: Acute congestive heart failure 2D Dimensions RVDd 4.7 cm LVEF(%) 66.9 (>50%) LVED Vol(simp.) 102.0 mL IVSd 0.9 (0.7-1.1cm) FS(%) 37 % LVES Vol(simp.) 34.5 mL LVDd 4.6 (3.8-5.6cm) LA (2D) 5.2 (1.6-4.0cm) LVEF(%, simp.) 66 % PWd 1.3 (0.7-1.1cm) Ao Root(2D) 2.9 (2.0-3.7cm) LA ESV INDEX (4CH) 32.90 mL/m2 IVSs 1.3 cm LVOT diam 2.1 (1.8-2.4cm) LA ESV INDEX (2CH) 28.80 mL/m2 LVDs 2.9 (2.5-4.0cm) LA ESV INDEX (BP) 29.40 mL/m2 PWs 1.6 cm M-Mode Dimensions EPSS 0.7 cm LA (MM) 5.1 (1.6-4.0cm) Ao Root(MM) 3.2 (2.0-3.7cm) Aortic Valve AoV VTI 0.3 m Ao Mean GR 5.0 mmHg LVOT VTI 0.23 m TRUPTI (VMAX) 2.6 cm2 TRUPTI (VTI) 2.6 cm2 Mitral Valve MV E Vmax 74.7 cm/s DECEL Time 169 ms MV A Vmax 110.6 cm/s P 1/2 T 57 ms E/A ratio 0.7 MVA (PHT) 3.9 cm2 TDI E/E' Medial 10.0 E/E' Lateral 10.2 Medial E' Peak V 7.50 cm/s Lateral E' Peak V 7.30 cm/s Pulmonary Valve PV Vmax 1.4 m/s PV Peak GR 8.3 mmHg Tricuspid Valve TR Vmax 1.7 m/s TR Peak GR 11.5 mmHg Left Ventricle Left ventricular cavity size is normal. There is normal LV segmental wall motion. There is normal left ventricular wall thickness. LVEF is 60-65%. Stage I diastolic dysfunction. Right Ventricle The right ventricle is normal size. The right ventricular systolic function is normal. Atria The left atrium size is mildly dilated The right atrium size is normal. Aortic Valve The aortic valve is trileaflet normal in structure. No aortic regurgitation is present. There is no aortic valvular stenosis. Mitral Valve The mitral valve is normal in structure. There is no mitral valve regurgitation noted. There is no mitral valve stenosis. Tricuspid Valve The tricuspid valve is normal in structure. There is no tricuspid valve regurgitation noted. Pulmonic Valve The pulmonary valve is normal in structure. There is no pulmonic valvular regurgitation. Great Vessels The aortic root is normal in size. The IVC is normal in size and collapses >50% with inspiration. Pericardium There is trace of pericardial effusion. Other Information Quality : Technically difficult study due to body habitus. Conclusion Normal LV EF NO significant valve abnormalities DICTATED BY: ESTEFANY FELDER MD DATE: 11/08/24 1137 ELECTRONICALLY SIGNED BY: ESTEFANY FELDER MD DATE: 11/09/24 1156 Assessment/Plan: ASSESSMENT: Acute CHF exacerbation with stable ejection fraction 60-65% cirrhosis Shortness of breaths Edema Hypokalemia Pleural effusion on chest x-ray Cardiomegaly on chest x-ray Chronic venous stasis dermatitis bilateral History of high blood pressure PLAN: ADMISSION DATE: 06/25/24 DISCHARGE DATE: 2023 DISPOSITION: Home CONDITION: Stable ELECTRONIC TECH(S): Machinist Wood: Dr. Kelley, private branch exchange service advisor Dr. Barroso FOLLOW UP APPOINTMENT(S): Patient has scheduled follow with PCP in 2-5 days, and follow with a private branch exchange service advisor in 2-5 days. PROCEDURES: none IMAGING (S) report attached to summary : Attached above MICROBIOLOGY: report attached to summary;-none ACTIVITY: ab rachna HOME MEDICATIONS : Continued NEW MEDICATIONS- none TEACHING: We reinforced the importance of compliance,with follow-up appointment and medication compliance. Advised patient to follow-up with PCP and private branch exchange service advisor Emergency instructions: The patient was instructed to present to the nearest Emergency Department or call 911 should their symptoms return or worsen. Home Medications: Reported Medications Benzonatate (Benzonatate) 200 Mg Capsule, 1 CAP PO Q8H PRN for cough 11/08/24 Atorvastatin Calcium (Atorvastatin Calcium) 20 Mg Tablet, 1 TAB PO DAILY 11/08/24 Metoprolol Tartrate (Lopressor) 25 Mg Tab, 1 TAB PO DAILY for blood pressure 11/08/24 Cephalexin (Cephalexin) 500 Mg Capsule, 1 CAP PO TID 11/08/24 Mupirocin Calcium (Mupirocin) 2 % Cream..g., 1 APPL TP TID for 10 Days, #30 GM 0 Refills 11/07/24 Lisinopril (Lisinopril) 10 Mg Tablet, 1 TAB PO DAILY for 30 Days, #30 TAB 0 Refills 11/07/24 Clopidogrel Bisulfate (Clopidogrel) 75 Mg Tablet, 1 TAB PO DAILY for 30 Days, #30 TAB 0 Refills 11/07/24 Atorvastatin Calcium (LIPITOR) 20 Mg Tab, 1 TAB PO HS for 30 Days, #30 TAB 0 Refills 11/07/24 Aspirin (Aspirin EC) 81 Mg Tablet.dr, 1 TAB PO DAILY for 30 Days, #30 TAB 0 Refills 11/07/24 Furosemide (Furosemide) 40 Mg Tablet, 1 TAB PO DAILY for 30 Days, #30 TAB 0 Refills 11/07/24 Amlodipine Besylate (Amlodipine Besylate) 5 Mg Tablet, 1 TAB PO DAILY for 30 Days, #30 TAB 0 Refills 11/07/24 Continued Medications: Amlodipine Besylate (Amlodipine Besylate) 5 Mg Tablet 1 TAB PO DAILY for 30 Days, #30 TAB 0 Refills Aspirin (Aspirin EC) 81 Mg Tablet.dr 1 TAB PO DAILY for 30 Days, #30 TAB 0 Refills Atorvastatin Calcium (Lipitor) 20 Mg Tab 1 TAB PO HS for 30 Days, #30 TAB 0 Refills Atorvastatin Calcium (Atorvastatin Calcium) 20 Mg Tablet 1 TAB PO DAILY Benzonatate (Benzonatate) 200 Mg Capsule 1 CAP PO Q8H PRN for cough Cephalexin (Cephalexin) 500 Mg Capsule 1 CAP PO TID Clopidogrel Bisulfate (Clopidogrel) 75 Mg Tablet 1 TAB PO DAILY for 30 Days, #30 TAB 0 Refills Furosemide (Furosemide) 40 Mg Tablet 1 TAB PO DAILY for 30 Days, #30 TAB 0 Refills Lisinopril (Lisinopril) 10 Mg Tablet 1 TAB PO DAILY for 30 Days, #30 TAB 0 Refills Metoprolol Tartrate (Lopressor) 25 Mg Tab 1 TAB PO DAILY for blood pressure Mupirocin Calcium (Mupirocin) 2 % Cream..g. 1 APPL TP TID for 10 Days, #30 GM 0 Refills Time spent arranging discharge: 31-60 minutes ATTESTATION BY PHYSICIAN I have seen and examined the patient. I reviewed the documentation, medical decision making, and treatment plan as noted by the mid-level provider above. I agree with the findings and plan of care. Marycarmen Rodrigues MD, AISHWARYA MD Nov 09, 2024 13:57
--- NOTE | 2024-11-09 14:41 | NUR ---
PATIENT ALERT AND ORIENTEDX4, WITH FAMILY AT BEDSIDE, BEING DISCHARGED HOME. PATIENT EDUCATED TO RESUME ALL HOME MEDS, TO FOLLOW UP WITH PCP AND DR. HURLEY (PT STATES HE HAS OWEN WITH DR. HURLEY). IV REMOVED WITHOUT COMPLICATIONS, ALL QUESTIONS ANSWERED, PATIENT AND FAMILY VERBALIZED COMPLETE UNDERSTANDING. PATIENT GATHERED ALL BELONGINGS AND TOOK WITH HIM AT DISCHARGE.
--- NOTE | 2024-11-09 22:49 | CONS ---
[facility] CONSULTATION NOTE Date Patient Seen: Nov 09, 2024 Time of Visit: 22:43 Supervising Physician: Dr. Quintin Kelley Reason for Consultation: SOB PROBLEM LIST: fluid overload anasarca cirrhosis vs nephrotic syndrome vs Heart failure Shortness of breaths Edema Hypokalemia Pleural effusion on chest x-ray Cardiomegaly on chest x-ray Chronic venous stasis dermatitis bilateral History of high blood pressure HPI: Patient is a 74-year-old male with a past medical history significant for hypertension and congestive heart failure. Patient was admitted for an acute episode of shortness breath was found to be in fluid overload upon further evaluation. Patient was started on 40 mg b.i.d. of furosemide, he has diuresed well during this admission. Patient is on room air upon evaluation, denies any shortness of breath at this time. There is a mild pleural effusion visible on CT scan, however no indication for thoracentesis at this time. We will continue to monitor his diuresis while he is on the floor. Recommendations to continue with the current medical treatment plan per primary team. PAST MEDICAL HX: see above PAST SURGICAL HX: noncontributory SOCIAL HISTORY: No tobacco, ETOH, or illicit drug use Coded Allergies: No Known Drug Allergies (Unverified Allergy, Unknown, 11/07/24) REVIEW OF SYSTEMS: 12 point ROS reviewed with patient. Pertinent positives mentioned above. Otherwise negative. PHYSICAL EXAM: GENERAL: alert, weak, awake oriented x 3 HEENT: EOMI, Sclera non icteric, moist mucosa NECK: Supple, no JVD, trachea midline LUNGS: Clear breath sounds bilaterally. No wheezes HEART: Regular rate and rhythm. Normal S1 and S2, without murmurs ABD: Abdomen soft, nontender. Bowel sounds present EXT: No clubbing cyanosis or edema NEURO: Alert and oriented to person, follows commands LABS: Hematology Labs: Test 11/09/24 05:28 Range/Units White Blood Count 5.8 4.8-10.8 K/uL Red Blood Count 3.49 L 4.50-6.20 MIL/uL Hemoglobin 10.9 L 14.0-18.0 g/dL Hematocrit 32.8 L 42-54 % Mean Corpuscular Volume 94.0 79-99 fL Mean Corpuscular Hemoglobin 31.2 27.0-33.0 pg Mean Corpuscular Hemoglobin Concent 33.2 32.0-36.0 g/dL Red Cell Distribution Width 14.9 11.0-15.5 % Platelet Count 115 L 130-400 K/uL Mean Platelet Volume 9.5 7.5-10.5 fL Immature Granulocyte % (Auto) 0.2 0-1 % Neutrophils (%) (Auto) 49.0 40.0-77.0 % Lymphocytes (%) (Auto) 33.6 21.0-51.0 % Monocytes (%) (Auto) 9.2 3.0-13.0 % Eosinophils (%) (Auto) 6.8 0.0-8.0 % Basophils (%) (Auto) 1.2 0.0-5.0 % Neutrophils # (Auto) 2.8 1.8-7.7 K/uL Lymphocytes # (Auto) 1.9 1.0-4.8 K/uL Monocytes # (Auto) 0.5 0.1-1.0 K/uL Eosinophils # (Auto) 0.39 0.00-0.70 K/uL Basophils # (Auto) 0.07 0.00-0.20 K/uL Absolute Immature Granulocyte (auto 0.01 0-1 K/uL Nucleated Red Blood Cells 0.0 0.0-0.19 % Chemistry Labs: Test 11/09/24 05:28 11/08/24 04:39 Range/Units Sodium Level 144 136-145 mmol/L Potassium Level 3.7 3.5-5.1 mmol/L Chloride Level 107 101-111 mmol/L Carbon Dioxide Level 31 21-32 mmol/L Blood Urea Nitrogen 11 7-18 mg/dL Creatinine 1.0 0.5-1.3 mg/dL Glomerular Filtration Rate Calc 80 >90 mL/min Random Glucose 79 70-105 mg/dL Total Calcium 8.0 L 8.5-10.1 mg/dL Total Bilirubin 2.4 H 0.2-1.0 mg/dL Aspartate Amino Transf (AST/SGOT) 57 H 10-37 U/L Alanine Aminotransferase (ALT/SGPT) 26 12-78 U/L Alkaline Phosphatase 202 H 50-136 U/L Total Protein 6.2 6.0-8.3 g/dL Albumin 2.3 L 3.5-5.0 g/dL B-Type Natriuretic Peptide 23 0-100 pg/mL DIAGNOSTICS / RADIOLOGY RESULTS: [ ] PLAN NEURO: Minimize central acting medications as possible. Maintain fall precautions, adequate lighting during the day PULMONARY: Supplemental 02 as needed. Maintain aspiration precautions at all times CARDIOVASCULAR: Follow hemodynamics. Vital signs per facility protocol GI & NUTRITION: Continue with nutritional support. Continue stool softeners and laxatives as needed. KIDNEYS & ELECTROLYTES: Strict monitoring of intake, output and overall fluid balance. Avoid nephrotoxic medications to the extent possible. Medications to be dosed according to renal function. Monitor electrolytes and replace as needed ENDOCRINE: Maintain blood glucose between 100-180 at all times. Hypoglycemia protocol in place INFECTIOUS DISEASE: Trend temperature, WBC and procalcitonin level Follow cultures, deescalate antibiotics as soon as possible. Panculture if new onset fever ONCOLOGY/HEMATOLOGY/COAGULATION: Monitor for s/s of bleeding Monitor hemoglobin, coagulation studies as needed SKIN: Pressure ulcer prevention per facility protocol Specialty mattress ORTHO/REHAB: Continue PT/OT Prophylaxis: Continue GI and DVT prophylaxis Code Status: Full Resuscitation Disposition: TBD Other: Total patient care time exceeds 35 minutes excluding all procedures. PHOENIX MEEKS Nov 09, 2024 22:49
== END 2024-11-09 15:10 | disposition home or self-care (01) | DRG 291 ==
LOC: EDH 14:32 → EDHIP 16:23 → 4DH 21:13
PROVIDERS: ADMIT Hospitalist; ATTEND Hospitalist
DX: I11.0 Hypertensive heart disease with heart failure (principal); I50.33 Acute on chronic diastolic (congestive) heart failure; J98.11 Atelectasis; E87.6 Hypokalemia; I87.2 Venous insufficiency (chronic) (peripheral); E78.00 Pure hypercholesterolemia, unspecified; K74.60 Unspecified cirrhosis of liver; K80.20 Calculus of gallbladder without cholecystitis without obstruction; Z51.5 Encounter for palliative care; Z79.02 Long term (current) use of antithrombotics/antiplatelets; Z79.82 Long term (current) use of aspirin; Z86.16 Personal history of COVID-19; Z79.899 Other long term (current) drug therapy
CPT/HCPCS: 36415; 71045; 71270; 80048; 80053; 83605; 83880; 84145; 84484; 85025; 85378; 85610; 85730; 87635; 87804; 93005; 93306; 93970; 94640; 94664; 96374; 99285; G0378; J1200; J1644; J1940; Q9967

== ENCOUNTER → 2024-12-15 | Outpatient (CLI) | payer MEDICARE ==
[~2024-12-15] MED LIST: AMLO-257 PO; ASPI-1443 PO; ATOR10 PO; ATOR20TA65 PO; BENZ200C53 PO; CEPH500C2 PO; CLOP75TA32 PO; FURO40TA5 PO; IOHEXOL 350 MG/ML 100ML INFUS..BTL IV ONE; LISI10TA24 PO; METO25 PO; MUPI15CR12 TP
--- NOTE | 2024-12-15 13:19 | HMCIMG ---
Exam Type: CT HEAD/BRAIN W/WO CONTRAST Clinical Information: TIA Comparison: None CT Dose Index (CTDI): 57.33 mGy Dose Length Product (DLP): 956.79 total mGy-cm Findings: There is low attenuation throughout the periventricular white matter locations, consistent with chronic small vessel ischemic changes. No acute intra- or extra-axial fluid collections are seen. There is no evidence of acute or chronic hemorrhage. There is no mass effect or shift of midline structures. There are no areas to suggest acute infarct. The skull windows show no significant abnormalities. After contrast administration, there is no abnormal enhancement. IMPRESSION: 1. CHRONIC SMALL VESSEL ISCHEMIC CHANGES.
== END | disposition home or self-care (01) ==
LOC: RAH 10:29
PROVIDERS: ATTEND Internal Medicine Interventional Cardiology
DX: I67.82 Cerebral ischemia (principal); I63.9 Cerebral infarction, unspecified; G45.9 Transient cerebral ischemic attack, unspecified
CPT/HCPCS: 70470; Q9967

== ENCOUNTER 2025-06-26 10:32 | Day surgery (SDC) | payer MEDICARE ==
[~2025-06-26] VITALS: Ht 167.6 cm; Wt 98.0 kg
[2025-06-26] VITALS (11 sets, daily range): BP systolic 146–163; BP diastolic 53–72; PULSE 60–67; RESP 15–18; TEMP 97.1–97.9
[~2025-06-26 10:32] MED LIST changes: -BENZ200C53 PO; -CEPH500C2 PO; +CHOL500062 PO; -IOHEXOL 350 MG/ML 100ML INFUS..BTL IV ONE; +PRED5TAB PO; +VALGDS450 PO
[2025-06-26] MEDS ORDERED: TORS20TA4 PO (12:37)
[2025-06-26] MEDS ORDERED: MAGN64TA9 PO (12:37)
[2025-06-26] MEDS ORDERED: PANT40TA54 PO (12:37)
[2025-06-26] MEDS ORDERED: URSO300C4 PO (12:37)
[2025-06-26] MEDS ORDERED: SULF1TAB42 PO (12:37)
[2025-06-26] MEDS ORDERED: FISH1CAP20 PO (12:37)
[2025-06-26] MEDS ORDERED: TACR1CAP10 PO ×2 (12:37)
[2025-06-26] MEDS: 0.9%NACL 1000ML 1,000 ML IV ONE (12:53)
[2025-06-26] MEDS ORDERED: LIDOCAINE PF 100MG/5ML (2%) SYRINGE 5ML ONE (13:17)
== END 2025-06-26 14:56 | disposition home or self-care (01) ==
LOC: DAH 10:32 → ENDO 10:32
PROVIDERS: ATTEND Internal Medicine Gastroenterology
DX: R12 Heartburn (principal); K29.50 Unspecified chronic gastritis without bleeding; K21.00 Gastro-esophageal reflux disease with esophagitis, without bleeding; I10 Essential (primary) hypertension; E78.5 Hyperlipidemia, unspecified; K29.00 Acute gastritis without bleeding; Z20.822 Contact with and (suspected) exposure to COVID-19; Z87.891 Personal history of nicotine dependence; Z79.82 Long term (current) use of aspirin; Z94.4 Liver transplant status; Z79.899 Other long term (current) drug therapy
CPT/HCPCS: 43239; 88305; 88312; J7030; J2003; J2704; A4620; A4215; 45380; J3490